=== PATIENT | female | born 1965 | race Caucasian/White ===

== ENCOUNTER 2016-08-04 11:21 | Day surgery (SDC) | payer OTHER ==
[~2016-08-04] VITALS: Ht 170.2 cm; Wt 126.6 kg
--- NOTE | 2016-08-04 08:00 | PCM.HPANE ---
Patient Data Surgeon Admitting Provider: Attending Provider:Andrey Haynes MD Primary Care Physician:Pierre Muñiz MD Other Provider:[facility] Anesthesia Reason for Visit Cervical Polyps Ht/WT & BMI Height (Feet): 5 Height (Inches): 7 Weight (Kilograms): 127.005 Body Mass Index 43.00 Allergies Coded Allergies: adhesive tape (Verified Allergy, Unknown, UNKNOWN, 08/03/16) diazepam (Verified Allergy, Unknown, UNKNOWN, 08/03/16) Past Anesthesia History Anesthesia History: Denies:: Anesthesia Reactions, Malignant Hyperthermia Diabetes History Hx Diabetes?: No MRSA MRSA: No Medications Hypertension Medication: No Home Meds Incl Beta Izzy: No Reported Medications Meloxicam 15 Mg [id number] Mg PO DAILY 30 Days Ref 0 08/03/16 History History of ENT Problems?: No Hx of Heart Problems?: No Cardiovascular History: Denies:: Heart Murmur Hypertension Hx of Respiratory Problem?: No Respiratory History: Denies:: Use of C-PAP Machine Hx Neurologic Problems?: No Hx of GI Problems?: Yes Other GI Pertinent History: S/P GASTRIC BYPASS Hx of Problems?: Yes Female Hx: Denies:: Currently (S/P BTL) Problems with Breasts? Skin History: Denies:: History Skin Disorders? Pressure Ulcers Hx Musculoskeletal Problems?: Yes Hx of Psycho/Social Problems?: No Hx Surgeries?: Yes (CTR,GASTRIC BYPASS,BTL) Hx Any Other Health Problems?: Yes Other History: Denies:: Cancer Endocrine Disease Hospitalization Thyroid Disease Hx Diabetes: No Hx Alcohol Use: YesAlcoholic Drinks Per Day: 2-3 BEERS/DAYHx Substance Use: NoHave You Smoked inLast 12 mo: No Stop/Bang S-Snoring: Do You Snore Loudly: No T-Tired: feel tired, fatigued: No P-Blood Pressure: treated: No B- Body Mass Index > 35 kg/m2: Yes A- Age over 50: Yes N- Neck Large Circumference: Yes G- Gender Male: No DIANNA Risk Assessment: Low Risk, <3 Yes Risk Assessment Category Category 1A: Patient has history of documented sleep apnea, and HAS NOT received any narcotic, sedative or anesthesia administration during this stay. Category 1B: Patient has history of documented sleep apnea, and HAS received any narcotic , sedative or anesthesia administration during this stay Category 2: Patient has SUSPECTED Obstructive Sleep Apnea, and HAS received any narcotic , sedative or anesthesia administration during this stay. Category 3: Patient has SUSPECTED Obstructive Sleep Apnea and HAS NOT received narcotic, sedative or anesthesia administration during this stay. Category 4: Outpatient in Procedural Areas with known sleep apnea or who screen positive for High Risk via the STOP/BANG questionnaire. Exam Exam General Appearance: Alert, Oriented X3, Cooperative, No Acute Distress HEENT/AIRWAY: MP 2 Lungs: Normal Air Movement Heart: Exam Unremarkable Plan Impression Patient chart reviewed, patient interviewed and anesthestic plan with risks, benefits, and alternatives discussed, and informed consent obtained. ASA Physical Status: ASA3 Severe Disease (morbid obesity) Anesthetic Plan: MAC Bene/Risks/Altern/Consents: Yes HP Complete Prior to Induction: Yes Bernardo Perez MD Aug 04, 2016 08:00
[~2016-08-04 11:21] MED LIST: CeFAZolin Inj 3 GM in IV Premix IV ONE; MELO-253 PO
[2016-08-04] MEDS ORDERED: Propofol 10,000 mCg/mL 20 mL Inj ONE (11:22)
[2016-08-04] MEDS ORDERED: fentaNYL-PF 50 mCg/mL 2 mL Inj ONE (11:22)
[2016-08-04] MEDS ORDERED: Ondansetron 2 mg/mL 2 mL Inj ONE (11:22)
[2016-08-04] MEDS: Lactated Ringer's 1,000 ML IV SCH ×2 (11:51→14:52)
[2016-08-04 12:01] VITALS: BP 134/79; PULSE 75; RESP 18; O2SAT 99
[2016-08-04] MEDS ORDERED: CeFAZolin Inj 3 Gm/ D5W 50 mL Bag IV ONE (14:26)
[2016-08-04] MEDS ORDERED: Lactated Ringer's 500 ML IV PRN (15:23)
[2016-08-04] MEDS ORDERED: Lactated Ringer's 1,000 ML IV SCH (15:23)
[2016-08-04] MEDS ORDERED: EPHEDrine Sulfate 50 mg/mL Inj IVPUSH PRN (15:25)
[2016-08-04] MEDS ORDERED: MetoCLOpramide 5 mg/mL 2 mL Inj IVPUSH PRN ×2 (15:25→15:35)
[2016-08-04] MEDS ORDERED: Phenylephrine 10,000 mCg/mL Inj IVPUSH PRN (15:25)
[2016-08-04] MEDS ORDERED: fentaNYL-PF 50 mCg/mL 2 mL Inj IVPUSH PRN (15:25)
[2016-08-04] MEDS ORDERED: Dexamethasone 4 mg/mL Inj IVPUSH PRN (15:25)
[2016-08-04] MEDS ORDERED: Ondansetron 2 mg/mL 2 mL Inj IVPUSH PRN ×2 (15:25→15:35)
[2016-08-04] MEDS ORDERED: HYDROmorphone 1 mg/mL Inj IVPUSH PRN (15:25)
--- NOTE | 2016-08-04 15:35 | PCM.ANEP1 ---
Post Anesthesia Phase 1 PACU Phase 1 Assessment Vital Signs see anesthesia record Vital Signs Date Time Temp Pulse Resp B/P Pulse Ox O2 Delivery O2 Flow Rate FiO2 08/04/16 12:01 36.5 75 18 134/79 99 Room Air Anesthetic Administered: MAC Level of Alertness: Awake, talking JERONIMO's with Equal Strength: Yes Pain: No Nausea or Vomiting: No Oxygen Delivery: Room Air Lungs: Normal Air Movement Dermatome Level: Full Sensation Bernardo Perez MD Aug 04, 2016 15:35
--- NOTE | 2016-08-04 15:36 | PCM.ANEP2 ---
Post Anesthesia Evaluation ASA/CMS Post Anesthesia VS in Patient's Normal Range?: Yes Resp Stable; Airway Patent?: Yes CV Function & Hydration Stable: Yes Mental Status Recovered?: Yes Pain control Satisfactory?: Yes N/V Control Satisfactory?: Yes Bernardo Perez MD Aug 04, 2016 15:36
--- NOTE | 2016-08-04 15:36 | PCM.DIGYN ---
Surgical Discharge Instruction Dates of Hospitalization Date of Hospital Admission outpatient on 08/04/16 Providers Admitting Physician: Primary Care Physician: Pierre Muñiz MD Attending Physician: Andrey Haynes MD Diagnosis at Time of Discharge Diagnosis at time of discharge cervical polyp Post-operative diagnosis same Problems: Diet Discharge Diet: No restrictions Activity Discharge Activity-General: No lifting >15 pounds for 2 weeks Dressing and Incisional Care Hygiene: May shower Follow Up Plan Follow-up appointment: Weeks (2) Call your provider for: Heavy vaginal bleeding Andrey Haynes MD Aug 04, 2016 15:36
[2016-08-04 15:40] VITALS: BP 130/72; PULSE 68; RESP 16; O2SAT 97
[2016-08-04 16:20] VITALS: BP 126/78; PULSE 68; RESP 16; O2SAT 98
--- NOTE | 2016-08-04 20:48 | PCM.SURGOP ---
Surgical Operative Report Date of Service: Aug 04, 2016 Pre Operative Diagnosis cervical polyp Post Operative Diagnosis same Procedure: Cervical polypectomy and endocervical curettage Surgeon and Sales Manager: Surgeon: Victoriano Haynes MD Assistants: None Indication for Procedure Tyesha found a protrusion of tissue near the opening of the vagina a few months ago when she was wiping. She has also noted some vaginal bleeding off-and-on that is not associated with menses. Large cervical polyp was noted on exam. Due to the large size of the cervical polyp, it is preferable to perform cervical polypectomy (x2) with endocervical curettage in the OR setting, in case of bleeding. The patient signed the consent form. She agreed with the risks, benefits, and alternatives to surgery. The risks included but not limited to recurrence or persistence of polyp, need for blood transfusion, hematoma formation, urinary tract infection, cervicitis or endometritis, cellulitis, necrotizing fascitis, and medical risks including myocardial infarction, stroke or VTE. The patient understood the risks and benefits and consented to surgery Findings: bilobed endocervical polyp (6 cm and 4 cm lengths) Procedure Details The patient was brought to the operating room and was placed in the supine position with legs in Yellow Jarrod stirrups. She was given MAC. The vagina was prepped in the usual fashion. She received IV ancef. A speculum was inserted into the vagina. A bilobed endocervical polyp (6 cm and 4 cm lengths) was noted at the cervical os. This was grasped with an ovum forceps and the stalk was incised using Metzembaum scissors. An endocervical curettage was performed. The endocervical canal was cauterized with ball cautery to achieve hemostasis and cauterize any remaining tissue left. The specimens were sent to pathology. She was taken to recovery in stable condition. EBL was minimal. Complications There were no periprocedural complications identified. Surgical Specimen Removed: Yes Specimen sent to Pathology: Yes Surgical Specimen description: cervical polyp endocervical curetting Anesthetic Plan: MAC Grafts, Implants: None Output, Estimated Blood Loss: 5 (ml) Blood Administration during euceda: No Drains: None Catheters: None Post Operative Plan d/c home today copies to: VICTORIANO RUBIO MD; Victoriano Haynes MD, William Andre Z MD Aug 04, 2016 20:45
--- NOTE | 2016-08-06 15:35 | PATH ---
SURGICAL PATHOLOGY Attending Physician:Andrey Haynes, CASE STATUS: Signed Out PATIENT NAME: ELISA SMITH PID: [id number] : 1965 DATE COLLECTED:08/04/2016 00:00 SPECIMEN: 1: Endocervix, Biopsy 2: Endocervix, Curettage CLINICAL HISTORY: CERVICAL POLYP 1). ENDOCERVICAL POLYP 2). ENDOCERVICAL CURETTINGS FINAL DIAGNOSIS: 1. Endocervix, Polyp, Biopsy: Benign endocervical polyp. No evidence of neoplasia. 2. Endocervix, Curettings: Endocervical mucosa and epithelium with no evidence of neoplasia. ICD10 N84.1 GROSS DESCRIPTION: 1). The specimen is received in formalin, labeled with the patient's name and "endocervical polyp". It consists of a 5.8 x 4.0 x 1.5 cm, quiroga-plummer, polypoid soft tissue. The specimen is serially sectioned to reveal a plummer cut surface with multiple cystic structures containing mucinous fluid. Certified Mortician sections are submitted in cassettes 1A-1C. 2). The specimen is received in formalin, labeled with the patient's name and "endocervical curettings". It consists of multiple fragments of red-brown soft tissue admixed with clotted blood measuring 2.6 x 1.6 x 0.7 cm in aggregate. The specimen is entirely submitted in cassette 2A (MELINA:[id number]) ICD-9 CODES: CPT CODES: 1: 35371 2: [id number] Electronically Signed Out Ruchi Bales MD [facility] [address] [facility], [place] [address] Technical component performed at [facility], [facility] [address], [address]
== END 2016-08-04 23:59 | disposition home or self-care (01) ==
LOC: SAS 11:21
PROVIDERS: ATTEND Obstetrics & Gynecology
DX: N84.1 Polyp of cervix uteri (principal); N93.9 Abnormal uterine and vaginal bleeding, unspecified; N81.2 Incomplete uterovaginal prolapse; Z98.84 Bariatric surgery status
CPT/HCPCS: 57505; 86850; J0690; J1885; J2250; J2405; J3010; J7120